=== PATIENT | male | born 1970 | race Caucasian/White ===

== ENCOUNTER 2016-11-05 13:37 | Emergency (ER) | payer OTHER ==
[~2016-11-05] VITALS: Ht 167.6 cm; Wt 67.6 kg
--- NOTE | ~2016-11-05 | EKG ---
PATIENT: FILIPE HOPPER UNIT #: [id number] Ventricular Rate: 61 BPM Atrial Rate: 61 BPM P-R Interval: 146 ms QRS Duration: 86 ms Q-T Interval: 398 ms QTC Calculation(Bezet): 400 ms P [place]: 56 degrees Calculated R [place]: 57 degrees Calculated T [place]: 40 degrees Diagnosis Line: Normal sinus rhythm Diagnosis Line: Normal ECG Diagnosis Line: When compared with ECG of 01-FEB-2011 09:17, Diagnosis Line: No significant change was found Diagnosis Line: Confirmed by GEORGE MAHMOOD MD ([id number]) on 11/06/2016 Diagnosis Line: 11:05:18 PM INTERPRETING MD: ELA REINA
--- NOTE | ~2016-11-05 | MR18 ---
[facility] A Service of [facility] RADIOLOGY TEXT RESULTS PATIENT: FILIPE HOPPER LOCATION: [facility] : [birth year] UNIT #: [id number] AGE: [address]: Ismael Arango DO SEX: M ORDER DR: [id number] [facility] [address] [place], [place] [address] [id number] E MR#: [id number] Acc #: [id number] NAME: FILIPE HOPPER : 1970 SEX: M STUDY DATE/TIME: 11/05/2016 16:20 UNIT: [facility] ROOM: STUDY DESCRIPTION: MR Brain Wo Contrast Attending Physician: Ismael Arango D.O. Ordering Physician: Ismael Arango D.O. Primary Care Physician: Oswaldo Degroot M.D. MRI CENTER REPORT This report is preliminary unless electronic signature is present. EXAM MRI brain without contrast 11/05/2016 HISTORY Lightheadedness, dizziness, lethargy and headache today. Patient states things seem cloudy and fuzzy. Patient states " had a couple of beers to drink". COMPARISON No prior CT head or MRI brain for comparison. FINDINGS Study is limited. Not all the sequences could be performed, some are degraded by motion. The technologist states the patient try to climb out of the scanner during the scan. Additionally, the patient refused sedation by nursing staff. No diffusion abnormalities are seen. No gross mass lesion, mass effect, midline shift, intracranial hemorrhage or extraaxial fluid collections are identified. Visualized portion brain parenchyma appears grossly unremarkable. No cerebellar or tonsillar herniation is seen. IMPRESSION 1. The study is limited. Study could not be completed, and the included images are degraded by motion. The patient apparently to climb out of the scanner during the exam and refused sedation. 2. This limited examination demonstrates no acute intracranial findings. Dictated by... Miladys Conroy M.D. THIS IS AN ELECTRONICALLY VERIFIED REPORT [facility] A Service [facility] RADIOLOGY TEXT RESULTS PATIENT: FILIPE HOPPER LOCATION: [facility] : 66 UNIT #: [id number] AGE: [address]: Ismael Arango DO SEX: M ORDER DR: Miladys Conroy M.D. at 11/06/2016 7:46 PM LLH/pcl TD: 11/06/2016 17:07 JOB #: [id number] MRI CENTER REPORT Page 1 of 1 COPY
--- NOTE | ~2016-11-05 | CR72 ---
[facility] A Service of [facility] RADIOLOGY TEXT RESULTS PATIENT: FILIPE HOPPER LOCATION: [facility] : [birth year] UNIT #: [id number] AGE: [address]: Ismael Arango DO SEX: M ORDER DR: [id number] [facility] [address] [place], [place] [address] [id number] E MR#: [id number] Acc #: [id number] NAME: FILIPE HOPPER : 1970 SEX: M STUDY DATE/TIME: 11/05/2016 15:02 UNIT: [facility] ROOM: STUDY DESCRIPTION: CR Chest Single View Portable Attending Physician: Ismael Arango D.O. Ordering Physician: Ismael Arango D.O. Primary Care Physician: Oswaldo Degroot M.D. MEDICAL IMAGING REPORT This report is preliminary unless electronic signature is present EXAM Single view chest INDICATIONS Shortness of air. Weakness and dizziness for 1 day. TECHNIQUE Single portable AP view of the chest compared to 02/01/2011. FINDINGS Heart and mediastinal contours normal. The lungs are clear. No pleural effusion. IMPRESSION No acute cardiopulmonary findings. Dictated by... Willy Gonzalez M.D. THIS IS AN ELECTRONICALLY VERIFIED REPORT Willy Gonzalez M.D. at 11/06/2016 1:27 PM BRYCE/marlen TD: 11/06/2016 13:01 JOB #: [id number] MEDICAL IMAGING REPORT Page 1 of 1 COPY
[~2016-11-05 13:37] MED LIST: ASPIR-TRIN325 MG PO
[2016-11-05 15:11] LABS: BASOPHIL# 0.1 X10e3 (0-0.3); EOSINOPHIL# 0.3 X10e3 (0-0.7); EOSINOPHIL% 3.6 % (0.0-7.0); HEMATOCRIT 46.7 % (38.0-50.0); HEMOGLOBIN 16.2 gm/dL (13.0-16.0); LYMPHOCYTE# 1.5 X10e3 (1.0-3.5); LYMPHOCYTE% 18.2 % (17.0-45.0); MEAN CELL VOLUME 94.8 FL (83-96); MEAN CORPUSCULAR HEMOGLOBIN 32.8 PG (28-34); MEAN CORPUSCULAR HGB CONC 34.6 g/dL (30-36); MEAN PLATELET VOLUME 9.8 FL (6.5-11.5); MONOCYTE# 0.9 X10e3 (0-1.0); NEUTROPHIL# 5.4 X10e3 (1.5-7.1); NEUTROPHIL% 66.2 % (40-75); PLATELET COUNT 194 X10e3 (140-420); RED BLOOD COUNT 4.93 X10e (3.90-5.60); RED CELL DISTRIBUTION WIDTH 13.3 % (11.0-15.5); WHITE BLOOD COUNT 8.2 X10e3 (4.0-10.5)
[2016-11-05 15:12] LABS: DIFF IND NO
[2016-11-05 15:30] LABS: POC - CKMB <1.0 ng/mL (0.0-7.9); POC - TROPONIN <0.05 ng/mL (<=0.05)
[2016-11-05 15:30] LABS: ALBUMIN SERUM 4.6 g/dL (3.5-5.0); BILIRUBIN, DIRECT 0.1 mg/dL (0.0-0.2); BILIRUBIN,INDIRECT 0.6 mg/dL (0.0-0.9); BILIRUBIN,TOTAL 0.7 mg/dL (0.2-2.0); CALCIUM SERUM 9.3 mg/dL (8.4-10.2); CREATININE SERUM 0.9 mg/dL (0.6-1.4); GLOM FILT RATE Estimated 100.6 mL/min (>60); POTASSIUM 4.2 mmol/L (3.5-5.1); PROTEIN TOTAL SERUM 7.6 g/dL (6.0-8.3)
== END 2016-11-05 17:20 | disposition left against medical advice (07) ==
LOC: CED 13:37
PROVIDERS: Emergency Medicine
DX: R42 Dizziness and giddiness (principal); J45.909 Unspecified asthma, uncomplicated; F17.200 Nicotine dependence, unspecified, uncomplicated; Z98.52 Vasectomy status
CPT/HCPCS: 36415; 70551; 71010; 80048; 80076; 82553; 84484; 85025; 93005; 99284; G0480; J2060